=== PATIENT | female | born 1965 | race American Indian/Alaskan Native ===

== ENCOUNTER 2018-09-21 12:36 | Outpatient (CLI) | payer BC ==
--- NOTE | 2018-09-24 00:53 | Magnetic Resonance Report ---
PROCEDURE: MR LE JOINT RT WO CON TECHNIQUE: Magnetic resonance imaging of the RIGHT knee was performed using standard pulse sequences . HISTORY: RT KNEE DERANGEMENT/RIGHT KNEE PAIN COMPARISONS: None . FINDINGS: No fractures are identified. There is minimal edematous changes seen in the proximal tibia adjacent t o the tibial spines. There is mild osteoarthritic change of the medial and lateral compartment of the knee with small marginal osteophytic spurs present. There is heterogeneous signal in the articular c artilage within the medial and lateral compartment of the knee consistent with chondromalacia. No exp osed cortical bone is visualized. The lateral meniscus is intact. There is abnormal signal seen in the posterior horn of the medial men iscus extending to the inferior articular surface and also to the free edge consistent with meniscal tearing. The anterior cruciate ligament is intact however there is a lobulated cyst projecting from the ante rior inferior aspect of the anterior cruciate ligament inserting on the tibial plateau. Individual cy sts measure up to 6 mm in size, overall the collection of cysts measures 1.6 cm transverse, 1.4 cm AP and 1.2 cm craniocaudal dimension. There are also several additional small ganglion cyst involving t he proximal end of the anterior cruciate ligament inserting on the femur. Individual cysts measure up to 5.5 mm in size. Multiple small cysts are visualized. The findings are consistent with mucinous de generation of the A small cyst also projects posteriorly from the distal end of the posterior cruciat e ligament measuring 5.2 mm. The posterior cruciate ligament otherwise is unremarkable. The medial an d lateral collateral ligaments are intact. Iliotibial band is intact. Patellar retinaculum are intact . There is irregularity of the lining of the suprapatellar bursa and also the posterior surface of Ho ffa's infrapatellar fat pad suggesting synovitis. Patellar tendon is intact. There is a moderate size joint effusion present. Popliteal cyst visualized measuring 5.3 cm craniocau mayank, 1.4 cm transverse and 2.6 cm AP. IMPRESSION: Abnormal appearance posterior horn medial meniscus. A tear is visualized extending to th e inferior articular surface and free edge. 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 Mild osteoarthritis medial and lateral compartment of the knee. Mild edematous changes visualized in the tibial plateau. Moderate-sized joint effusion is present. Synovitis is suspected. Cystic change seen involving the superior and inferior insertions of the anterior cruciate ligament, multiple ganglion cysts appear to be present. The ligament appears intact. The appearance is consiste nt with mucinous degeneration. Small ganglion cyst is also visualized projecting from the posterior s urface of the posterior cruciate ligament at the insertion on the tibia. Posterior cruciate ligament is otherwise unremarkable. This document is electronically signed by Cristiano Osman MD., September 24 2018 12:51:17 AM ET
== END 2018-09-21 12:37 | disposition home or self-care (01) ==
LOC: SPVIMAG 12:36
PROVIDERS: ATTEND Orthopaedic Surgery
DX: S83.241A Other tear of medial meniscus, current injury, right knee, initial encounter (principal); M25.461 Effusion, right knee; M71.21 Synovial cyst of popliteal space [Baker], right knee; X58.XXXA Exposure to other specified factors, initial encounter; Y93.89 Activity, other specified; Y92.89 Other specified places as the place of occurrence of the external cause; Y99.8 Other external cause status
CPT/HCPCS: 73721